=== PATIENT | female | born 1980 | race Caucasian/White ===

== ENCOUNTER 2016-07-12 21:13 | Emergency (ER) | payer BC ==
[~2016-07-12 21:13] MED LIST: ALEVE PO; ALPRAZOLAM PO; AMITRIPTYLINE H25 MG PO; BACLOFEN10 MG PO; IMITREX PO; LORCET PLUS TAB1 TAB PO; MUCINEX D ER T1 EACH PO; MULTIVITAMIN1 UDCAP PO; PRILOSEC20 M1 PO; PROZAC PO; SUDAFED PO; VERAMYST10 GM NS; VOLTAREN75 MG PO; ZYRTEC PO
== END 2016-07-12 21:30 | disposition home or self-care (01) ==
LOC: SED 21:13
DX: S61.412A Laceration without foreign body of left hand, initial encounter (principal); F41.9 Anxiety disorder, unspecified; Z23 Encounter for immunization; G43.909 Migraine, unspecified, not intractable, without status migrainosus; Z88.2 Allergy status to sulfonamides; Z79.899 Other long term (current) drug therapy
CPT/HCPCS: 12001; 90471; 90715; 99283